=== PATIENT | female | born 1955 | race Caucasian/White ===

== ENCOUNTER 2022-06-19 13:01 | Outpatient (CLI) | payer MEDICARE | END 2022-06-19 13:02 | disposition home or self-care (01) | LOC: CSHCP 13:01 | PROVIDERS: ATTEND Internal Medicine | DX: R91.1 Solitary pulmonary nodule (principal); R94.2 Abnormal results of pulmonary function studies | CPT/HCPCS: 94060; 94726; 94729; 94760 ==